=== PATIENT | female | born 1980 | race African-American/Black ===

== ENCOUNTER 2017-07-21 21:16 | Emergency (ER) | payer OTHER ==
[~2017-07-21] VITALS: Ht 160 cm; Wt 59.0 kg
[~2017-07-21 21:16] MED LIST: APAP500 PO; BACTRIM DS TAB1 EACH PO; DERMOPLAST SPRA56 ML TP; FLAGYL500 MG PO; HYDROCORTISONE30 G9 TOP; IBUPROFEN 600600 M1 PO; MULTIVITAMINS1 EAC7; NAPROSYN500 MG PO; NOHOMEMEDICATIONS; NORCO 5-325 TA1 EACH PO; PHENERGAN 25 MG25 M1 PO; PHENERGAN 25 MG25 MG PO; PRENATAL PO; PROMETHAZINE-C120 ML PO; TUCKS MEDICATE1 EAC1 TP; ZPAK PO
[2017-07-21 21:41] LABS: URINE BILIRUBIN NEGATIVE (Negative); URINE BLOOD 1+ (Negative); URINE CLARITY CLEAR; URINE COLOR YELLOW; URINE GLUCOSE-RANDOM* NEGATIVE (Negative); URINE KETONES NEGATIVE (Negative); URINE LEUKOCYTES 1+ (Negative); URINE NITRITE POSITIVE (Negative); URINE PROTEIN (DIPSTICK) NEGATIVE (Negative); URINE SPECIFIC GRAVITY 1.015 (1.005-1.035); URINE UROBILINOGEN 0.2 E.U./dl (0.2-1.0)
[2017-07-21 21:52] LABS: SQUAMOUS 4-10 Moderate /LPF (0-3)
[2017-07-21 21:53] LABS: BACTERIA 1-9 Few /HPF (None Seen); CASTS None Seen /LPF (None Seen); CRYSTALS None Seen /LPF (None Seen); URINE RBC 3-10 Few /HPF (0-2); URINE WBC 6-15 Few /HPF (0-5)
[2017-07-21] MEDS ORDERED: BACTRIM DS TAB1 EACH PO (23:12)
[2017-07-21] MEDS ORDERED: NAPROSYN500 MG PO (23:12)
== END 2017-07-21 23:40 | disposition home or self-care (01) ==
LOC: ER 21:16
PROVIDERS: Nurse Practitioner Family
DX: R10.30 Lower abdominal pain, unspecified (principal); N30.00 Acute cystitis without hematuria; N39.0 Urinary tract infection, site not specified; F41.9 Anxiety disorder, unspecified; Z98.890 Other specified postprocedural states

== ENCOUNTER 2017-10-12 16:12 | Emergency (ER) | payer OTHER ==
[~2017-10-12] VITALS: Ht 160 cm; Wt 65.8 kg
[2017-10-12] MEDS ORDERED: IBUPROFEN 600600 M1 PO (17:45)
[2017-10-12 17:59] VITALS: BP 146/69
== END 2017-10-12 18:03 | disposition home or self-care (01) ==
LOC: ER 16:12
DX: R51 Headache (principal); F41.9 Anxiety disorder, unspecified; Z88.6 Allergy status to analgesic agent

== ENCOUNTER 2018-01-28 11:22 | Emergency (ER) | payer OTHER ==
[~2018-01-28] VITALS: Ht 162.6 cm; Wt 59.0 kg
--- NOTE | ~2018-01-28 | EKG ---
[address] [address] [place] [address] ELECTROCARDIOGRAM REPORT Name: ROBERTO NEGRON [id number] Admission: 01/28/18 Attend Phys: Discharge: 01/28/18 Date of : 84 Report #: [id number] THIS REPORT FOR: //name// [facility] ED Test Date: 2018-01-28 Test Time: 11:33:34 Pat Name: ROBERTO NEGRON Department: Room: Gender: F [employer]: QUIRINO : 1980 Requested By: Kesha Lauren Order Number: [id number] MD: Mahendra Busch Measurements Intervals [place] Rate: 84 P: 48 ME: 129 QRS: 46 QRSD: 78 T: 33 QT: 372 QTc: 440 Interpretive Statements Sinus rhythm Normal tracing No previous ECG available for comparison Electronically Signed On 01-28-2018 15:39:08 CDT by Mahendra Busch [email or web address] <ELECTRONICALLY SIGNED> By: Mahendra Busch MD, [facility] 01/28/18 1539 [id number] Mahendra Busch MD, FAC /EPI
[2018-01-28 12:05] LABS: ABSOLUTE NEUTROPHILS 2.3 thou/uL (1.4-8.2); BASOPHILS 0.8 % (0.0-2.0); EOSINOPHILS 1.4 % (0.0-3.0); HEMATOCRIT 33.8 % (37.0-47.0); HEMOGLOBIN 11.2 gm/dL (12.0-15.0); LYMPHOCYTES 29.2 % (24.0-44.0); MCH 27.6 pg (26.0-34.0); MCHC 33.1 g/dL (28.0-37.0); MCV 83.2 fL (80.0-100.0); PLATELET COUNT 330 thou/uL (150-400); POLYS 59.6 % (36.0-66.0); RBC 4.06 mil/uL (4.20-5.00); RDW 15.6 % (10.5-14.5); WBC 3.9 thou/uL (4.0-11.0)
[2018-01-28 12:14] LABS: URINE BILIRUBIN NEGATIVE (Negative); URINE BLOOD NEGATIVE (Negative); URINE CLARITY CLEAR; URINE COLOR YELLOW; URINE GLUCOSE-RANDOM* NEGATIVE (Negative); URINE KETONES NEGATIVE (Negative); URINE LEUKOCYTES-REFLEX NEGATIVE (Negative); URINE NITRITE-REFLEX NEGATIVE (Negative); URINE PROTEIN (DIPSTICK) NEGATIVE (Negative); URINE UROBILINOGEN 0.2 E.U./dl (0.2-1.0)
[2018-01-28 12:17] LABS: CALCIUM 9.1 mg/dL (8.5-10.1)
[2018-01-28 12:24] LABS: AMP/METHAMP Negative (Negative); BARBITURATES Negative (Negative); BENZODIAZEPINES Negative (Negative); COCAINE Negative (Negative); METHADONE Negative (Negative); OPIATES Negative (Negative); PCP Negative (Negative)
[2018-01-28 12:35] LABS: ALBUMIN 4.1 g/dL (3.4-5.0); TOTAL BILIRUBIN 0.2 mg/dL (<0.1-1.0)
[2018-01-28] MEDS ORDERED: ATIVAN0.5 MG PO (12:56)
[2018-01-28 13:15] VITALS: BP 141/75
== END 2018-01-28 13:15 | disposition home or self-care (01) ==
LOC: ER 11:22
PROVIDERS: Physician Assistant
DX: R00.2 Palpitations (principal); R42 Dizziness and giddiness; F41.9 Anxiety disorder, unspecified; R51 Headache; R11.0 Nausea; Z88.8 Allergy status to other drugs, medicaments and biological substances

== ENCOUNTER 2019-07-24 23:33 | Emergency (ER) | payer BC, OTHER ==
[~2019-07-24] VITALS: Ht 160 cm; Wt 62.6 kg
[~2019-07-24 23:33] MED LIST changes: +ATIVAN0.5 MG PO
[2019-07-25] MEDS ORDERED: GUAIFEN-CODEINE10 ML PO (01:48)
[2019-07-25 02:02] VITALS: BP 129/67
== END 2019-07-25 02:03 | disposition home or self-care (01) ==
LOC: ER 23:33
DX: J06.9 Acute upper respiratory infection, unspecified (principal); F41.9 Anxiety disorder, unspecified; Z88.8 Allergy status to other drugs, medicaments and biological substances

== ENCOUNTER 2021-01-27 19:26 | Emergency (ER) | payer BC, OTHER ==
[~2021-01-27] VITALS: Ht 160 cm; Wt 57.6 kg
[~2021-01-27 19:26] MED LIST changes: +GUAIFEN-CODEINE10 ML PO
[2021-01-27] MEDS ORDERED: MEDROLDOSEPACK PO (20:02)
[2021-01-27 20:18] VITALS: BP 131/77
== END 2021-01-27 20:19 | disposition home or self-care (01) ==
LOC: ER 19:26
DX: L23.7 Allergic contact dermatitis due to plants, except food (principal); F41.9 Anxiety disorder, unspecified; Z98.51 Tubal ligation status; Z79.899 Other long term (current) drug therapy; Z88.8 Allergy status to other drugs, medicaments and biological substances

== ENCOUNTER 2021-04-01 09:36 | Emergency (ER) | payer BC, OTHER ==
[~2021-04-01] VITALS: Ht 170.2 cm; Wt 56.7 kg
[~2021-04-01 09:36] MED LIST changes: +MEDROLDOSEPACK PO
[2021-04-01 10:14] LABS: URINE BILIRUBIN NEGATIVE (Negative); URINE BLOOD 3+ (Negative); URINE CLARITY SL CLOUDY; URINE COLOR RED; URINE GLUCOSE-RANDOM* 2+ (Negative); URINE KETONES 1+ (Negative); URINE LEUKOCYTES-REFLEX TRACE (Negative); URINE PROTEIN (DIPSTICK) 2+ (Negative); URINE UROBILINOGEN >= 8.0 E.U./dl (0.2-1.0)
[2021-04-01 10:18] LABS: URINE NITRITE-REFLEX POSITIVE (Negative)
[2021-04-01 10:45] LABS: AMORPHOUS URATES Moderate /LPF (None Seen); BACTERIA-REFLEX 1-9 Few /HPF (None Seen); CASTS None Seen /LPF (None Seen); SQUAMOUS None Seen /LPF (0-3); URINE WBC-REFLEX 0-5 Rare /HPF (0-5)
[2021-04-01 10:58] LABS: ABSOLUTE NEUTROPHILS 5.2 thou/uL (1.4-8.2); BASOPHILS 1.3 % (0.0-2.0); EOSINOPHILS 0.2 % (0.0-3.0); HEMATOCRIT 30.7 % (37.0-47.0); HEMOGLOBIN 9.9 gm/dL (12.0-15.0); LYMPHOCYTES 7.4 % (24.0-44.0); MCH 25.5 pg (26.0-34.0); MCHC 32.2 g/dL (28.0-37.0); MCV 79.3 fL (80.0-100.0); MONOCYTES 5.5 % (1.0-8.0); PLATELET COUNT 305 thou/uL (150-400); POLYS 85.6 % (36.0-66.0); RBC 3.88 mil/uL (4.20-5.00); RDW 19.1 % (10.5-14.5); WBC 6.1 thou/uL (4.0-11.0)
[2021-04-01 11:04] LABS: CALCIUM 9.1 mg/dL (8.5-10.1); CREATININE 1.1 mg/dL (0.6-1.0); POTASSIUM 4.4 mmol/L (3.5-5.1)
[2021-04-01] MEDS ORDERED: LEVOFLOXACIN750 MG PO (13:01)
[2021-04-01] MEDS ORDERED: HYDROCODON-ACE1 EAC7 PO (13:01)
[2021-04-01 13:13] VITALS: BP 130/65
== END 2021-04-01 13:13 | disposition home or self-care (01) ==
LOC: ER 09:36
PROVIDERS: Student in an Organized Health Care Education/Training Program
DX: N12 Tubulo-interstitial nephritis, not specified as acute or chronic (principal); Z98.51 Tubal ligation status; Z88.8 Allergy status to other drugs, medicaments and biological substances